=== PATIENT | male | born 1975 | race Caucasian/White ===

== ENCOUNTER 2024-04-15 16:41 | Emergency (ER) | payer OTHER ==
[~2024-04-15] VITALS: Ht 177.8 cm; Wt 90.7 kg
[2024-04-15 17:07] VITALS: TEMP 98.2
[2024-04-15] MEDS ORDERED: IBUP-1953 PO (18:44)
[2024-04-15 19:22] VITALS: BP 124/95; O2SAT 98
== END 2024-04-15 19:23 | disposition home or self-care (01) ==
LOC: ER 16:41
DX: S13.4XXA Sprain of ligaments of cervical spine, initial encounter (principal); S33.5XXA Sprain of ligaments of lumbar spine, initial encounter; R51.9 Headache, unspecified; V43.52XA Car driver injured in collision with other type car in traffic accident, initial encounter; Y93.89 Activity, other specified; Y92.488 Other paved roadways as the place of occurrence of the external cause; Y99.8 Other external cause status
CPT/HCPCS: 70450-TC; 72125-TC; 72131-TC